=== PATIENT | female | born 1950 | race Caucasian/White ===

== ENCOUNTER 2017-05-31 07:29 | Emergency (ER) | payer MEDICARE, OTHER ==
[~2017-05-31] VITALS: Ht 160 cm; Wt 86.2 kg
[~2017-05-31 07:29] MED LIST: AMLO5TAB2 PO; ASPI-605 PO; CLOP75TA2 PO; FENO134C PO; FURO-145 PO; GABA-534 PO; INSU100C7 SQ; LOSA100T15 PO; METF10002 PO; TRAM50TA2 PO
[2017-05-31] MEDS ORDERED: predniSONE 20 MG TABLET ONE (07:58)
[2017-05-31] MEDS ORDERED: KETOROLAC TROMETHAMINE INJ 30 MG/ML VIAL ONE (07:58)
[2017-05-31] MEDS ORDERED: KETOROLAC TROMETHAMINE INJ 30 MG/ML VIAL IV ONE (08:00)
[2017-05-31] MEDS ORDERED: predniSONE 20 MG TABLET PO ONE (08:00)
[2017-05-31] MEDS ORDERED: IV NS 0.9% 500 ML BAG IV ONE (08:00)
--- NOTE | 2017-05-31 08:00 | NUR ---
PATIENT TO ED C/O RT FOOT PAIN X1 DAY DRY JANITOR . DENIES TRAUMA FALL. PATIENT IS DIABETIC. NOTED LEFT FOOT SWOLLEN. VSS
[2017-05-31 08:17] LABS: BASOPHILS # (AUTO) 0.1 /CMM (0.0-0.2); BASOPHILS % (AUTO) 0.6 % (0.0-2.0); EOSINOPHILS # (AUTO) 0.2 /CMM (0.0-0.7); HEMATOCRIT 44 % (33-45); HEMOGLOBIN 14.4 g/dL (11.5-14.8); LYMPHOCYTES # (AUTO) 1.8 /CMM (0.8-4.8); LYMPHOCYTES % (AUTO) 18.8 % (20.0-44.0); MEAN CORPUSCULAR HEMOGLOBIN 29 PG (26.0-33.0); MEAN CORPUSCULAR HGB CONC 33 g/dl (31.0-36.0); MEAN CORPUSCULAR VOLUME 88 fL (82-100); MONOCYTES # (AUTO) 0.9 /CMM (0.1-1.30); MONOCYTES % (AUTO) 9.5 % (2.0-12.0); NEUTROPHILS # (AUTO) 6.5 /CMM (1.8-8.9); NEUTROPHILS % (AUTO) 69.1 % (43.0-81.0); PLATELET COUNT (AUTO) 287 /CMM (150-450); RDW COEFFICIENT OF VARIATION 13.7 (11.5-15.0); RED BLOOD CELL COUNT(AUTO) 5.01 MIL/uL (4.0-5.2); WHITE BLOOD COUNT (AUTO) 9.5 K/uL (4.3-11.0)
[2017-05-31 08:27] LABS: CALCIUM, SERUM 9.5 mg/dL (8.5-10.1); CREATININE 0.7 mg/dL (0.6-1.3)
[2017-05-31 09:30] VITALS: BP 145/82
--- NOTE | 2017-05-31 09:30 | NUR ---
Patient discharged to home in stable condition. Written and verbal after care instructions given. Patient verbalizes understanding of instruction. IV removed. Catheter intact and site benign. Pressure and 4x4 applied to site. No bleeding noted. Prescription given.
== END 2017-05-31 09:33 | disposition home or self-care (01) ==
LOC: ER 07:30
DX: M10.9 Gout, unspecified (principal); I10 Essential (primary) hypertension; I25.10 Atherosclerotic heart disease of native coronary artery without angina pectoris; E11.9 Type 2 diabetes mellitus without complications; Z79.4 Long term (current) use of insulin; Z79.82 Long term (current) use of aspirin
CPT/HCPCS: 36415; 73630; 80048; 84550; 85025; 96374; 99285; A4606; J1885; J7040; J7512; Z7610